=== PATIENT | female | born 1985 | race Two or more races ===

== ENCOUNTER 2018-02-27 12:25 | Observation (INO) | payer SELFPAY ==
[2018-02-27] MEDS ORDERED: PREN-96 PO (13:42)
== END 2018-02-27 14:00 | disposition home or self-care (01) | DRG 782 ==
LOC: LDRP 12:25
PROVIDERS: ADMIT Obstetrics & Gynecology; ATTEND Obstetrics & Gynecology
DX: O62.9 Abnormality of forces of labor, unspecified (principal); O09.33 Supervision of pregnancy with insufficient antenatal care, third trimester; Z3A.39 39 weeks gestation of pregnancy
CPT/HCPCS: 59025; 76818; 81002; G0378

== ENCOUNTER 2018-03-02 07:10 | Inpatient (IN) | payer SELFPAY ==
[~2018-03-02] VITALS: Ht 162.6 cm; Wt 127.9 kg
[~2018-03-02 07:10] MED LIST: PREN-96 PO
[2018-03-02] MEDS ORDERED: OXYTOCIN IV ONE (07:35)
[2018-03-02] MEDS ORDERED: LACT RINGERS IV ONE (07:35)
[2018-03-02] MEDS ORDERED: LACT. RINGERS/OXYTOCIN 20UNITS 1,000 ML IV SCH (07:46)
[2018-03-02] MEDS ORDERED: LACTATED RINGER'S 1,000 ML IV SCH (07:46)
[2018-03-02] MEDS ORDERED: METHYLERGONOVINE MALEATE 0.2 MG/ML AMP IM PRN (08:00)
[2018-03-02] MEDS ORDERED: WITCH HAZEL-GLYCERIN PAD TOP PRN (08:00)
[2018-03-02] MEDS ORDERED: LIDOCAINE 2% (LOCAL ANESTH.) PF 5ml SDV ID ONE (08:00)
[2018-03-02] MEDS ORDERED: PHISODERM TOP SOLN 240ML BTL TOP PRN (08:00)
[2018-03-02] MEDS ORDERED: DERMOPLAST 60ML BOTTLE TOP PRN (08:00)
[2018-03-02] MEDS ORDERED: LACT. RINGERS/OXYTOCIN 20UNITS 500 ML IV ONE (09:03)
[2018-03-02 09:13] LABS: Urine Bacteria FEW /hpf (None Seen); Urine Blood 2+ /uL (Negative); Urine Mucus FEW (None Seen); Urine Specific Gravity 1.017 (1.001-1.035); Urine WBC 2 /hpf (0 - 5)
[2018-03-02 09:14] LABS: Basophils # (auto) 0 uL; Basophils % (auto) 0.1 % (0.0-2.0); Eosinophils # (auto) 0 uL; Eosinophils % (auto) 0.4 % (0.0-7.0); Hematocrit 41.1 % (36.0-46.0); Hemoglobin 13.6 g/dL (12.2-16.2); Lymphocytes # (auto) 1.5 uL; Lymphocytes % (auto) 12.6 % (10.0-50.0); Mean Corpuscular Hemoglobin 28.8 pg (28.0-32.0); Mean Corpuscular Hgb Conc. 33.1 g/dL (32.0-36.0); Monocytes # (auto) 0.4 uL; Monocytes % (auto) 3.6 % (0.0-12.0); Neutrophils % (auto) 83.3 % (37.0-80.0); Platelet Count (auto) 163 10^3/uL (140-450); Red Blood Cells 4.72 10^6/uL (4.0-5.20); Red Cell Distribution Width 14.8 % (11.8-14.3)
[2018-03-02] MEDS ORDERED: IBUPROFEN 600 MG TAB PO PRN (09:15)
[2018-03-02 09:33] LABS: Albumin 2.4 g/dL (3.4-5.0); BUN/Creatinine Ratio 12.5; Calcium 8.2 mg/dL (8.5-10.1)
[2018-03-02 09:34] LABS: INR 0.86 (0.9-1.15); Partial Thromboplastin Time 27.5 sec (23.78-33.04); Prothrombin Time 9.3 sec (9.27-12.13)
[2018-03-02 09:39] LABS: Bilirubin, Total 0.2 mg/dL (0.2-1.0); Potassium 3.9 mmol/L (3.5-5.1); Total Protein 6.4 g/dL (6.4-8.2)
[2018-03-02 09:49] VITALS: BP 111/65
[2018-03-02] MEDS: ACETAMINOPHEN 325 MG TAB PO PRN ×3 (10:19→20:02)
[2018-03-02 10:51] VITALS: BP 107/66
[2018-03-02 15:06] VITALS: BP_SYST 104
[2018-03-02 19:00] VITALS: BP 107/61
[2018-03-02] MEDS ORDERED: TETANUS-DIPTH-ACEL PERTUSSIS 0.5ML SYRG IM ONE (19:45)
[2018-03-02 23:15] VITALS: BP 110/74
[2018-03-03 03:30] VITALS: BP 113/55
[2018-03-03 06:35] VITALS: BP 108/69
[2018-03-03 07:06] LABS: RPR Non Reactive (Non Reactive)
[2018-03-03 10:50] VITALS: BP 117/81
== END 2018-03-03 10:45 | disposition home or self-care (01) | DRG 775 ==
LOC: OBSVTOIN 07:10 → LDRP 07:10
PROVIDERS: ADMIT Obstetrics & Gynecology; ATTEND Obstetrics & Gynecology
PROC: 10E0XZZ Delivery of Products of Conception, External Approach (ICD-10-PCS; principal; 2018-03-02)
PROC: 0KQM0ZZ Repair Perineum Muscle, Open Approach (ICD-10-PCS; 2018-03-02)
PROC: 10907ZC Drainage of Amniotic Fluid, Therapeutic from Products of Conception, Via Natural or Artificial Opening (ICD-10-PCS; 2018-03-02)
DX: O69.81X0 Labor and delivery complicated by cord around neck, without compression, not applicable or unspecified (principal); O70.1 Second degree perineal laceration during delivery; O71.82 Other specified trauma to perineum and vulva; Z3A.39 39 weeks gestation of pregnancy; Z37.0 Single live birth
CPT/HCPCS: 36415; 59025; 59409; 80053; 81001; 85025; 85610; 85730; 86592; 86850; 86900; 86901; 90715; 96365; 96366; 96372; J2590

== ENCOUNTER 2023-08-11 12:04 | Emergency (ER) | payer MEDICAID ==
[~2023-08-11] VITALS: Ht 162.6 cm; Wt 78.8 kg
[2023-08-11 12:28] LABS: Basophils # (auto) 0.1 10 ^3/uL (0-0.2); Basophils % (auto) 0.9 % (0.0-2.0); Eosinophils # (auto) 0.2 10 ^3/uL (0-0.8); Eosinophils % (auto) 2.2 % (0.0-7.0); Hematocrit 40.6 % (36.0-46.0); Hemoglobin 13.9 g/dL (12.2-16.2); Lymphocytes # (auto) 3.2 10 ^3/uL (0.4-5.4); Lymphocytes % (auto) 29.4 % (10.0-50.0); Mean Corpuscular Hemoglobin 28.5 pg (28.0-32.0); Mean Corpuscular Hgb Conc. 34.3 g/dL (32.0-36.0); Monocytes # (auto) 0.6 10 ^3/uL (0-1.3); Monocytes % (auto) 5.2 % (0.0-12.0); Neutrophils # (auto) 6.8 10 ^3/uL (1.6-8.6); Neutrophils % (auto) 62.3 % (37.0-80.0); Red Cell Distribution Width 13.2 % (11.8-14.3); White Blood Cell 10.9 10^3/uL (4.4-10.8)
[2023-08-11 12:46] LABS: Alanine Aminotransferase 32 U/L (7-40); Albumin 4.5 g/dL (3.2-4.8); Alkaline Phosphatase 111 U/L (46-116); Anion Gap 4 (5-15); Aspartate Aminotransferase 25 U/L (13-40); BUN/Creatinine Ratio 14.3 (10.0-20.0); Blood Urea Nitrogen 10 mg/dL (9-23); Calcium 9.6 mg/dL (8.5-10.1); Carbon Dioxide 27 mmol/L (20-30); Chloride 108 mmol/L (98-107); Glucose 88 mg/dL (74-106); Potassium 3.8 mmol/L (3.5-5.1); Sodium 139 mmol/L (136-145)
[2023-08-11 12:47] LABS: Bilirubin, Total 0.5 mg/dL (0.2-1.0)
[2023-08-11 13:30] LABS: Urine Bacteria NONE SEEN /hpf (None Seen); Urine Blood Negative /uL (Negative); Urine Clarity Clear (Clear); Urine Color Colorless (Yellow); Urine Protein, UAD Negative (Negative); Urine Specific Gravity 1.011 (1.001-1.035); Urine Urobilinogen Normal (Negative); Urine WBC 3 /hpf (0 - 5)
[2023-08-11] MEDS: NITROGLYCERIN 0.4 MG SL TAB SL ONE (13:41)
[2023-08-11] MEDS: ASPirin 325 MG TAB PO ONE (13:43)
[2023-08-11] MEDS ORDERED: KETOROLAC TROMETH 30 MG/ML 1ML VIAL IV ONE (15:00)
[2023-08-11 17:19] VITALS: BP 138/73; PULSE 68; RESP 16; TEMP 98.9; O2SAT 100
[2023-08-11] MEDS: KETOROLAC TROMETH 60MG/2ML VIAL IM ONE (17:35)
== END 2023-08-11 18:37 | disposition home or self-care (01) ==
LOC: ER 12:04
DX: R07.89 Other chest pain (principal)
CPT/HCPCS: 36415; 71045; 80053; 81001; 84484; 85025; 85379; 93005; 96372; 99285; J1885

== ENCOUNTER 2023-10-04 12:26 | Emergency (ER) | payer MEDICAID ==
[~2023-10-04] VITALS: Ht 162.6 cm; Wt 76.4 kg
[2023-10-04] MEDS: PROMETHAZINE W/CODEINE 5 ML ORAL SYRUP PO ONE (13:45)
[2023-10-04] MEDS ORDERED: BENZ100C97 PO (14:11)
[2023-10-04] MEDS ORDERED: CETI5TAB6 PO (14:11)
[2023-10-04] MEDS ORDERED: PROM1SOL4 PO (14:11)
[2023-10-04] MEDS ORDERED: NAP500T PO (14:11)
[2023-10-04 14:32] VITALS: BP 126/80; PULSE 94; RESP 20; TEMP 98.1; O2SAT 97
== END 2023-10-04 14:31 | disposition home or self-care (01) ==
LOC: ER 12:26
DX: J40 Bronchitis, not specified as acute or chronic (principal); Z79.899 Other long term (current) drug therapy
CPT/HCPCS: 71046